=== PATIENT | male | born 1955 | race Caucasian/White ===

== ENCOUNTER 2019-08-14 07:23 | Day surgery (SDC) | payer MEDICARE ==
[2019-08-06 11:11] VITALS: BP 116/69
[2019-08-06 11:12] LABS: BASOPHILS % (AUTO) 0.4 % (0.0-5.0); HEMATOCRIT 41.6 % (42-54); LYMPHOCYTES % (AUTO) 21.3 % (21.0-51.0); MEAN CORPUSCULAR HEMOGLOBIN 29.3 pg (27.0-33.0); MEAN CORPUSCULAR HGB CONC 32.5 g/dL (32.0-36.0); MEAN CORPUSCULAR VOLUME 90.4 fL (79-99); MONOCYTES % (AUTO) 7.8 % (3.0-13.0); NEUTROPHILS % (AUTO) 68.9 % (40.0-77.0); PLATELET COUNT (AUTO) 136 K/uL (130-400); RED CELL DISTRIBUTION WIDTH 12.5 % (11.0-15.5); WHITE BLOOD COUNT (AUTO) 4.9 K/uL (4.8-10.8)
[2019-08-06 11:49] LABS: CREATININE 1.1 mg/dL (0.5-1.5); POTASSIUM 4.4 mmol/L (3.5-5.1)
--- NOTE | 2019-08-06 11:57 | NUR ---
CLOPIDOGREL PER PT, DR. OCONNOR HAD INSTRUCTED HIM TO TAKE LAST DOSE OF CLOPIDOGREL ON 08/07/19. PT VERBALIZED UNDERSTANDING.
[2019-08-14] VITALS (14 sets, daily range): BP systolic 111–129; BP diastolic 47–76
[~2019-08-14] VITALS: Ht 188 cm; Wt 122.2 kg
[~2019-08-14 07:23] MED LIST: ATOR40TA69 PO; CLOP75TA32 PO; FINA5TAB41 PO; LISI10TA7 PO; TAMS-1 PO
[2019-08-14] MEDS ORDERED: LACTATED RINGERS 1000ML 1,000 ML IV ONE (07:59)
[2019-08-14] MEDS: CEFTRIAXONE SODIUM 1 GM IVP SCH ×2 (08:00→09:50)
[2019-08-14] MEDS ORDERED: ROCURONIUM 10MG/1ML SYR 10 MG/ML ML ONE (09:45)
[2019-08-14] MEDS ORDERED: FENTANYL CITRATE PF 50 MCG/1 ML 2ML VIAL ONE ×2 (09:45→11:14)
[2019-08-14] MEDS ORDERED: LIDOCAINE HCL MPF 1% 5ML VIAL ONE (09:45)
[2019-08-14] MEDS ORDERED: MIDAZOLAM HCL 1 MG/ML 2ML VIAL ONE (09:45)
[2019-08-14] MEDS ORDERED: PROPOFOL 10 MG/ML 20ML VIAL IV ONE (09:45)
[2019-08-14] MEDS ORDERED: NEOSTIGMINE 5MG/5ML SYR IV ONE (10:40)
[2019-08-14] MEDS ORDERED: GLYCOPYRROLATE 1 MG/5 ML SYRINGE ONE (10:40)
[2019-08-14] MEDS ORDERED: DEXAMETHASONE SOD PHOSPHATE 10MG/ML 1ML VIAL ONE (10:40)
[2019-08-14] MEDS ORDERED: ONDANSETRON HCL 4 MG/2 ML VIAL ONE (10:40)
[2019-08-14] MEDS ORDERED: OPIUM/BELLADONNA ALKALOIDS 1 EACH SUPP.RECT RC ONE (10:42)
[2019-08-14] MEDS ORDERED: MEPERIDINE-PF 25 MG/ML SYG ONE (11:26)
[2019-08-14] MEDS ORDERED: PHENAZOPYRIDINE HCL 200 MG TABLET ONE (11:34)
== END 2019-08-14 12:44 | disposition home or self-care (01) ==
LOC: DAH 07:23
PROVIDERS: ATTEND Urology
DX: N40.1 Benign prostatic hyperplasia with lower urinary tract symptoms (principal); R33.9 Retention of urine, unspecified; I10 Essential (primary) hypertension; G47.30 Sleep apnea, unspecified; E78.5 Hyperlipidemia, unspecified; Z86.73 Personal history of transient ischemic attack (TIA), and cerebral infarction without residual deficits; Z90.89 Acquired absence of other organs; Z98.890 Other specified postprocedural states; Z99.89 Dependence on other enabling machines and devices; Z87.891 Personal history of nicotine dependence
CPT/HCPCS: 36415; 52648; 80048; 85025; 88305; 93005; A4215; A4221; A4222; A4223; A4340; A4354; A4510; A4600; A4663; A5113; A6260; J0696; J1100; J2175; J2250; J2405; J2704; J2710; J3010 ×2; J3490 ×2; J7120 ×2

== ENCOUNTER 2019-08-22 02:13 | Emergency (ER) | payer OTHER, MEDICARE ==
[2019-08-22] MEDS ORDERED: LIDOCAINE HCL 2% JELLY 5 ML ONE (02:42)
== END 2019-08-22 04:55 | disposition home or self-care (01) ==
LOC: EDH 02:13
DX: R33.9 Retention of urine, unspecified (principal); Z98.890 Other specified postprocedural states; Z87.891 Personal history of nicotine dependence
CPT/HCPCS: 51702

== ENCOUNTER → 2024-03-02 | Outpatient (CLI) | payer MEDICARE, OTHER ==
[~2024-03-02] MED LIST changes: +LISI10TA24 PO; -LISI10TA7 PO
[2024-03-02 12:29] LABS: ALBUMIN 3.6 g/dL (3.5-5.0); BILIRUBIN,TOTAL 0.7 mg/dL (0.2-1.0); CREATININE 1.3 mg/dL (0.5-1.3); POTASSIUM 4.2 mmol/L (3.5-5.1); TOTAL PROTEIN, SERUM 6.6 g/dL (6.0-8.3)
== END | disposition home or self-care (01) ==
LOC: LAB 10:45
PROVIDERS: ATTEND Internal Medicine Cardiovascular Disease
DX: I10 Essential (primary) hypertension (principal); R07.9 Chest pain, unspecified
CPT/HCPCS: 36415; 80053

== ENCOUNTER → 2024-03-06 | Outpatient (CLI) | payer MEDICARE ==
[~2024-03-06] MED LIST changes: +IOHEXOL 350 MG/ML 100ML INFUS..BTL IV ONE; +METOPROLOL TARTRATE 1 MG/ML 5ML VIAL IV ONE
== END | disposition home or self-care (01) ==
LOC: RAH 10:42
PROVIDERS: ATTEND Internal Medicine
DX: R07.9 Chest pain, unspecified (principal)
CPT/HCPCS: 75574; J3490; Q9967 ×2

== ENCOUNTER → 2024-03-11 | Outpatient (CLI) | payer MEDICARE ==
[~2024-03-11] MED LIST changes: -IOHEXOL 350 MG/ML 100ML INFUS..BTL IV ONE; -METOPROLOL TARTRATE 1 MG/ML 5ML VIAL IV ONE
== END | disposition home or self-care (01) ==
LOC: SHCH 12:31
PROVIDERS: ATTEND Internal Medicine
DX: I08.3 Combined rheumatic disorders of mitral, aortic and tricuspid valves (principal); R07.9 Chest pain, unspecified
CPT/HCPCS: 93306

== ENCOUNTER 2024-07-24 07:20 | Day surgery (SDC) | payer MEDICARE ==
[2024-07-22 11:24] LABS: CREATININE 1.1 mg/dL (0.5-1.3); POTASSIUM 4.7 mmol/L (3.5-5.1)
[2024-07-22 11:30] VITALS: BP 127/70; PULSE 72; RESP 18; TEMP 97.2
[2024-07-22 11:47] LABS: BASOPHILS # (AUTO) 0.02 K/uL (0.00-0.20); BASOPHILS % (AUTO) 0.4 % (0.0-5.0); EOSINOPHILS # (AUTO) 0.06 K/uL (0.00-0.70); EOSINOPHILS % (AUTO) 1.2 % (0.0-8.0); HEMATOCRIT 40.3 % (42-54); IMMATURE GRANULOCYTE ABSOLUTE 0.02 K/uL (0-1); LYMPHOCYTES # (AUTO) 1.1 K/uL (1.0-4.8); LYMPHOCYTES % (AUTO) 22.7 % (21.0-51.0); MEAN CORPUSCULAR HEMOGLOBIN 29.8 pg (27.0-33.0); MEAN CORPUSCULAR VOLUME 93.1 fL (79-99); MONOCYTES # (AUTO) 0.4 K/uL (0.1-1.0); MONOCYTES % (AUTO) 8.7 % (3.0-13.0); NEUTROPHILS # (AUTO) 3.3 K/uL (1.8-7.7); NEUTROPHILS % (AUTO) 66.6 % (40.0-77.0); PLATELET COUNT (AUTO) 137 K/uL (130-400); RED BLOOD CELL COUNT(AUTO) 4.33 MIL/uL (4.50-6.20); RED CELL DISTRIBUTION WIDTH 12.5 % (11.0-15.5); WHITE BLOOD COUNT (AUTO) 4.9 K/uL (4.8-10.8)
[2024-07-24] VITALS (14 sets, daily range): BP systolic 105–116; BP diastolic 60–72; PULSE 58–78; RESP 14–16; TEMP 97–97.2
[~2024-07-24] VITALS: Ht 188 cm; Wt 122.4 kg
[~2024-07-24 07:20] MED LIST changes: +ATOR10 PO; -ATOR40TA69 PO; +CHOL100046 PO; -LISI10TA24 PO; +LISI5TAB21 PO; +METO-408 PO; +MULT-1258 PO
[2024-07-24] MEDS: LACTATED RINGERS 1000ML 1,000 ML IV ONE (08:18)
[2024-07-24] MEDS: cefTRIAXone 1G VIAL ONE (08:19)
[2024-07-24] MEDS ORDERED: LIDOCAINE HCL MPF 1% 5ML VIAL ONE (09:28)
[2024-07-24] MEDS ORDERED: MIDAZOLAM HCL 1 MG/ML 2ML VIAL ONE (09:29)
[2024-07-24] MEDS ORDERED: proPOFol 10 MG/ML 20ML VIAL IV ONE (09:30)
[2024-07-24] MEDS ORDERED: rocuRONium bROMide 10MG/1ML 5ML VL ONE (09:30)
[2024-07-24] MEDS ORDERED: FENTanyl CITRate PF 50 MCG/1 ML 2ML VIAL ONE (09:32)
[2024-07-24] MEDS ORDERED: Solu-medROL 125MG VIAL ONE (10:30)
[2024-07-24] MEDS ORDERED: dexaMETHasone SOD PHOSPHATE 10MG/ML 1ML VIAL ONE (10:31)
[2024-07-24] MEDS ORDERED: ondanSETRON 4MG INJ ONE (10:31)
[2024-07-24] MEDS ORDERED: GLYCOPYRROLATE 0.2 MG/ML 5 ML VIAL ONE (10:55)
[2024-07-24] MEDS ORDERED: NEOSTIGMINE METHYLSULFATE 1MG/ML IV ONE (10:55)
--- NOTE | 2024-07-24 11:36 | OP ---
DATE OF PROCEDURE: 07/24/2024 PREOPERATIVE DIAGNOSIS: Obstructive prostatism and split urinary stream. POSTOPERATIVE DIAGNOSIS: Obstructive prostatism and split urinary stream. PROCEDURE PERFORMED: GreenLight laser vaporization of obstructive prostate tissue. ANESTHESIA: General endotracheal anesthesia. SURGEON: Kiersten Clay MD PREOPERATIVE INDICATIONS: This is a 69-year-old gentleman,who had a GreenLight laser vaporization of his prostate 5 years ago. The patient had been doing well until he gradually began developing a split urinary stream. Cystoscopic evaluation in the office revealed a regrowth of the prostate gland of the left lateral lobe crossing midline. He presents today for repeat laser vaporization of this tissue. Preoperatively, he received Rocephin 1 g intravenously. His preoperative PSA was 0.79 with a creatinine of 1.1 and a glomerular filtration rate of 72. Of note, prostate tissue was removed on the patient's prior GreenLight 5 years previously and this was negative for malignancy. DESCRIPTION OF PROCEDURE: The patient was brought to the operating room and placed in the supine position. Following adequate general endotracheal anesthesia, he was sterilely draped and prepped in the usual fashion in the dorsal lithotomy position. TAYLOR hose and Venodyne stockings were placed on his lower extremities and all pressure points were padded. A 22-Slovenian cystoscopic sheath with 30-degree angle lens in place was positioned per urethra and negotiated into the bladder. The pendulous urethra was without strictures or foreign bodies. The verumontanum was normal. The patient had a lobe of tissue crossing midline obscuring the bladder neck. Moving into the bladder itself, there were no bladder tumors, foreign bodies or stones. Both ureteral orifices were identified along the trigone with a clear efflux of urine from each. Following this, the cystoscope was removed and a resectoscope sheath was positioned. A laser scope was positioned through the lumen of the resectoscope sheath and a GreenLight laser fiber was then passed through the laser scope. With the initial laser settings at 140 ignacio laser vaporization of this regrowth of tissue, an even regrowth of tissue, was performed. The energy level was increased to 160 ignacio and a total of 49,511 joules of energy were delivered over a laser time of 5 minutes and 40 seconds. The patient had an open prostatic urethral channel at the end of the procedure. Copious irrigation was performed using Ellik irrigators. The patient was noted to have clear efflux with good hemostasis. The instruments were removed. An 18-Slovenian coude tipped catheter was then inserted and instilled with 40 mL of water. He was transported to the recovery room in stable condition and he will be discharged home today with prescriptions for Keflex, tramadol and Pyridium. He is to follow up in the office on 07/28/2024, for Paulino catheter removal. TID: [id number] RECEIPT: [id number]
[2024-07-24] MEDS ORDERED: PHENAZOpyridine HCL 200 MG TAB 200 MG TABLET PO ONE (12:00)
[2024-07-24] MEDS: PHENAZOpyridine HCL 200 MG TAB 200 MG TABLET ONE (12:26)
--- NOTE | 2024-07-24 12:44 | NUR ---
Full and complete Discharge Instructions given to Patient and Family both verbally and in writing.. All questions answered. Voiced understanding to Surgical procedure, precautions and Follow Up. Paulino Catheter education completed. Paulino Catheter bag secured with gentle traction from OR. Provided urinal for urine drainage. Patient voiced understanding in full. PIV removed with catheter tip intact. Denies c/o pain or discomfort. D/C'd W/C to POV with Family to Home.
== END 2024-07-24 12:40 | disposition home or self-care (01) ==
LOC: DAH 07:20
PROVIDERS: ATTEND Urology
DX: N40.1 Benign prostatic hyperplasia with lower urinary tract symptoms (principal); R39.13 Splitting of urinary stream; I10 Essential (primary) hypertension; I25.10 Atherosclerotic heart disease of native coronary artery without angina pectoris; E78.5 Hyperlipidemia, unspecified; Z86.73 Personal history of transient ischemic attack (TIA), and cerebral infarction without residual deficits; G47.33 Obstructive sleep apnea (adult) (pediatric); Z98.890 Other specified postprocedural states; Z79.899 Other long term (current) drug therapy
CPT/HCPCS: 80048; 85025; 36415; 52648; A6260; A4663; J7120 ×2; A4354; J3010; J1100; J2919; J3490 ×3; J0696; J2250; J2704; J2405; J2710; A4358; A4930; A4215; A4223; A4222; A4221; A4510; A4600